=== PATIENT | female | born 2000 | race American Indian/Alaskan Native ===

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

== ENCOUNTER 2022-03-07 22:10 | Emergency (ER) | payer MEDICAID ==
[2022-03-07] MEDS ORDERED: ONDANSETRON 4 MG ODT TAB PO ONE (22:29)
== END 2022-03-08 06:03 | disposition left against medical advice (07) ==
LOC: ED 22:10
DX: R11.10 Vomiting, unspecified (principal); Z53.21 Procedure and treatment not carried out due to patient leaving prior to being seen by health care provider
CPT/HCPCS: J3490; Q0162